=== PATIENT | female | born 1985 | race Caucasian/White ===

== ENCOUNTER 2017-03-19 16:08 | Observation (INO) ==
[2017-03-19] MEDS ORDERED: ZOFRAN IV ONE (16:36)
[2017-03-19] MEDS ORDERED: MORPHINE IV ONE ×2 (16:36→18:25)
[2017-03-19] MEDS ORDERED: NS 1,000 ML IV ONE (16:36)
[2017-03-19 16:46] LABS: BILIRUBIN URINE NEGATIVE (NEGATIVE); BLOOD URINE NEGATIVE (NEGATIVE); CLARITY CLEAR (CLEAR); COLOR YELLOW; GLUCOSE URINE NEGATIVE (NEGATIVE); LEUKOCYTES URINE TRACE (NEGATIVE); NITRITE URINE NEGATIVE (NEGATIVE); PROTEIN URINE NEGATIVE (NEGATIVE); SP GRAVITY URINE 1.015; UROBILINOGEN URINE NORMAL
[2017-03-19 16:49] LABS: URINE EPITHELIAL CELLS >10 /HPF (<10)
[2017-03-19 16:50] LABS: URINE CAST NONE SEEN /LPF; URINE CRYSTAL NONE SEEN /HPF; URINE CULTURE PL NEEDED? YES; URINE SOURCE CLEAN CATCH
[2017-03-19 17:18] LABS: MANUAL DIFF NEEDED? NO
[2017-03-19 17:20] LABS: BASO% 0.5 % (0.0-0.8); EOS# 0.16 X1000 (0.0-0.7); EOS% 2.8 % (0.0-10.0); HEMOGLOBIN 9.3 g/dL (12.0-16.0); IMM GRAN# 0.02 X1000 (0.0-0.04); IMM GRAN% 0.3 % (0.0-0.5); LYMPH# 2.19 X1000 (1.2-3.4); LYMPH% 38.2 % (20.5-51.1); MCH 29.7 PG (27-31); MCHC 32.1 g/dL (33-37); MCV 92.7 FL (81-99); MONO# 0.47 X1000 (0.11-0.59); MONO% 8.2 % (1.7-9.3); MPV 9.9 FL (7.4-10.4); PLT 204 X1000 (130-400); RBC 3.13 XMIL (4.2-5.4)
--- NOTE | 2017-03-19 17:41 | Diag Imaging Result Doc PS360 ---
RENAL STONE SEARCH - 03/19/2017 INDICATION: flank pain TECHNIQUE: A CT dose reduction protocol was used. COMPARISON: 12/11/2013 FINDINGS: No radiodense renal stones. No hydronephrosis or hydroureter. There is a new relatively large ventral hernia at the right lower quadrant and right side of the pelvis containing quite a bit of the small bowel and some a sending colon. No bowel obstruction or inflammation. Uterus is absent. Urinary bladder and rectum are normal. There are moderate degenerative changes of the spine. No acute or suspicious bony lesion. IMPRESSION: New ventral hernia containing nonobstructed small bowel and colon. Electronically signed by Umer Grimaldo 03/19/2017 5:39 PM
[2017-03-19 17:57] LABS: AGAP 7; ALBUMIN 2.2 g/dL (3.5-5.0); ALKALINE PHOSPHATASE 38 U/L (32-104); BUN 8 mg/dL (8-22); CHLORIDE 116 mmol/L (98-107); COSMO 276; GOT 9 U/L (10-30); GPT 9 U/L (10-36); LIPASE 14 U/L (13-60); SODIUM 140 mmol/L (136-145); TCO2 18 mmol/L (25-35); TOTAL BILIRUBIN < 0.15 mg/dL (0.20-1.00); TOTAL PROTEIN 4.4 g/dL (6.3-8.3)
[2017-03-19 17:59] LABS: CALCIUM 5.4 mg/dL (8.8-10.2)
[2017-03-19] MEDS ORDERED: KLOR-CON PO ONE (18:24)
[2017-03-19] MEDS ORDERED: POTASSIUM CHLORIDE 40 MEQ/SWI 40 MEQ/100 ML IVPB IV ONE (18:24)
[2017-03-19] MEDS ORDERED: MAGNESIUM SULFATE 1 GM/D5W 1 GM/100 ML IVPB IV ONE (18:24)
[2017-03-19] MEDS ORDERED: MACROBID PO ONE (18:38)
[2017-03-19] MEDS ORDERED: TYLENOL PO PRN (18:40)
[2017-03-19] MEDS ORDERED: ZOFRAN IV PRN (18:40)
[2017-03-19] MEDS ORDERED: MORPHINE IV PRN (18:40)
--- NOTE | 2017-03-19 19:10 | EKG Report ---
Test Performed on : 03/19/2017 6:59:47 PM Test Reason : CP Blood Pressure : / mmHG Vent. Rate : 091 BPM Atrial Rate : 091 BPM P-R Int : 166 ms QRS Dur : 076 ms QT Int : 368 ms P-R-T Axes : 053 039 033 degrees QTc Int : 452 ms Normal sinus rhythm. Low voltage QRS Nonspecific ST and T wave abnormality Abnormal ECG When compared with ECG of 06-MAY-2007 11:52, No significant change was found Unconfirmed Result
--- NOTE | 2017-03-19 21:15 | PROVIDER DOCUMENTATION ---
This chart was entered by Haritha Riddle Scribe, acting as scribe for Sung Altman PA. HPI-Female /OB/Breast - General Chief Complaint: Flank Pain Stated Complaint: FLANK PAIN Time Seen by Provider: 03/19/17 16:33 Source: reports: patient Allergies/Adverse Reactions: Patient Allergies Allergy/AdvReac Type Severity Reaction Status Date / Time toradol or tramadol not sure Allergy SHORTNESS Uncoded 06/10/15 19:33 OF BREATH Home Medications: Home Medication List Medication Instructions Recorded Confirmed Last Taken Type Citalopram Hydrobromide [Celexa] 20 mg pe PO DAILY 07/16/16 03/19/17 03/18/17 21 :00 History Acetaminophen [Tylenol] 650 mg PO Q4H PRN PRN 03/19/17 03/19/17 03/18/17 21:00 History Pantoprazole [Protonix] 40 mg PO DAILY@0700 03/19/17 03/19/17 03/18/17 21:00 History - History of Present Illness-Female /OB Nature of Presenting Problem: 31 yo F presents to the ER with complaint of R flank pain that radiates to her R groin. Has nausea associated. Denies hx of kidney stones and denies hematuria. Location of complaint: reports: right flank Radiation: reports: groin Quality of Pain: reports: sharp Severity in ED: reports: moderate Onset/Duration: reports: 2 days ago Urinary Symptoms: denies: hematuria Associated Symptoms: reports: nausea Review of Systems - Adult - REVIEW OF SYSTEMS - ADULT Constitutional: denies: chills, fever Eyes: reports: no symptoms reported Ears, Nose, Mouth & Throat: reports: no symptoms reported Cardiovascular: denies: chest pain, palpitations Respiratory: denies: cough, shortness of breath Gastrointestinal: reports: nausea. denies: vomiting Genitourinary: reports: flank pain. denies: dysuria Musculoskeletal: reports: no symptoms reported Integumentary: reports: no symptoms reported Neurological: reports: no symptoms reported Psychiatric: reports: no symptoms reported Endocrine: reports: no symptoms reported Hematologic/Lymphatic: reports: no symptoms reported Allergic/Immunologic: reports: no symptoms reported All Other Systems: Reviewed and Negative Past History - Adult - PAST MEDICAL HISTORY-ADULT Review of Records: reports: Nursing Assessment Review, Medications Reviewed Major Childhood Illnesses: reports: denies history Cardiovascular: reports: cardiac disease Gastrointestinal: reports: GERD, other (benign abdominal tumor) Psychiatric: reports: anxiety - PRIOR SURGERIES/PROCEDURES Surgical/Procedure History: reports: hysterectomy, BTL, other (abdominal tumor removal) - PRIOR HOSPITALIZATIONS Prior Hospitalizations: reports: for other non-related - IMMUNIZATION STATUS Childhood Immunizations: See Nurse Assessment Flu Vaccine: See Nurse Assessment - FAMILY HISTORY Family History: other (not contributory) Physical Exam-General - PHYSICAL EXAM-ADULT Initial Vital Signs Reviewed: Yes - CONSTITUTIONAL General Appearance: alert, no apparent distress, obese - EYES Eyes: PERRL/EOMI, pink conjunctivae - HEAD, EARS, NOSE, MOUTH & THROAT HENMT: normocephalic/atraumatic, normal ENT inspection - NECK Neck: supple, normal inspection - RESPIRATORY Respiratory: no respiratory distress, no accessory muscle use - CARDIOVASCULAR Cardiovascular: normal peripheral pulses, regular rate, rhythm - GASTROINTESTINAL (ABDOMEN) Abdominal Exam: normal bowel sounds, non tender, soft - MUSCULOSKELETAL Back Exam: no CVA tenderness, no vertebral tenderness Extremity: normal range of motion, non-tender, normal gait, normal inspection - SKIN Integumentary: normal color, warm/dry - NEUROLOGIC Neurologic: grossly normal, no motor/sensory deficits - PSYCHIATRIC Psych/Mental Status: normal mood/affect, normal thought content, normal thought process, oriented x 3, tearful Progress - PLAN OF CARE/RESULTS Progress/Plan/Lab Results: Vital Signs - 8 hr 03/19/17 16:16 Temperature 99.5 F Pulse Rate 116 H Respiratory Rate 30 H Blood Pressure 154/103 O2 Sat by Pulse Oximetry 98 Laboratory Results - last 24 hr 03/19/17 03/19/17 03/19/17 16:34 17:13 17:13 WBC 5.74 RBC 3.13 L Hgb 9.3 L Hct 29.0 L MCV 92.7 MCH 29.7 MCHC 32.1 L RDW Std Deviation 13.0 Plt Count 204 MPV 9.9 Immature Gran % (Auto) 0.3 Neut % (Auto) 50.0 Lymph % (Auto) 38.2 [place] % (Auto) 8.2 Eos % (Auto) 2.8 Baso % (Auto) 0.5 Immature Gran # (Auto) 0.02 Neut # (Auto) 2.87 Lymph # (Auto) 2.19 [place] # (Auto) 0.47 Eos # (Auto) 0.16 Baso # (Auto) 0.03 Sodium 140 Potassium 2.0 L* Chloride 116 H Carbon Dioxide 18 L Anion Gap 7 BUN 8 Creatinine 0.3 L Estimated GFR/1.73 m2 > 60 BUN/Creatinine Ratio 27 Glucose 64 L Calculated Osmolality 276 Calcium 5.4 L* Magnesium Total Bilirubin < 0.15 L AST 9 L ALT 9 L Alkaline Phosphatase 38 Total Protein 4.4 L Albumin 2.2 L Globulin 2.0 Albumin/Globulin Ratio 1.0 Lipase 14 Urine Source CLEAN CATCH Urine Color YELLOW Urine Clarity CLEAR Urine pH 6.0 Ur Specific [place] 1.015 Urine Protein NEGATIVE Urine Ketones NEGATIVE Urine Blood NEGATIVE Urine Nitrite NEGATIVE Urine Bilirubin NEGATIVE Urine Urobilinogen NORMAL Urine Microscopic RBC Not Reportable Urine WBC TRACE A Urine Microscopic WBC 10-20 A Ur Epithelial Cells >10 A Urine Crystals NONE SEEN Urine Bacteria 1+ Urine Casts NONE SEEN Urine Yeast NONE SEEN Urine Glucose NEGATIVE 03/19/17 17:13 WBC RBC Hgb Hct MCV MCH MCHC RDW Std Deviation Plt Count MPV Immature Gran % (Auto) Neut % (Auto) Lymph % (Auto) [place] % (Auto) Eos % (Auto) Baso % (Auto) Immature Gran # (Auto) Neut # (Auto) Lymph # (Auto) [place] # (Auto) Eos # (Auto) Baso # (Auto) Sodium Potassium Chloride Carbon Dioxide Anion Gap BUN Creatinine Estimated GFR/1.73 m2 BUN/Creatinine Ratio Glucose Calculated Osmolality Calcium Magnesium 1.1 L Total Bilirubin AST ALT Alkaline Phosphatase Total Protein Albumin Globulin Albumin/Globulin Ratio Lipase Urine Source Urine Color Urine Clarity Urine pH Ur Specific [place] Urine Protein Urine Ketones Urine Blood Urine Nitrite Urine Bilirubin Urine Urobilinogen Urine Microscopic RBC Urine WBC Urine Microscopic WBC Ur Epithelial Cells Urine Crystals Urine Bacteria Urine Casts Urine Yeast Urine Glucose Orders Category Date Time Status Admit - [facility] Routine AdmDCTranf 03/19/17 18:40 Ordered Activity - Up Ad Deidre ORDERED Care 03/19/17 18:40 Active Call Admitting on Arrival AT ADMISSION Care 03/19/17 18:41 Active Resuscitation Status Routine Care 03/19/17 18:40 Ordered Saline Loc DIRECTED Care 03/19/17 16:39 Active Saline Loc DIRECTED Care 03/19/17 18:40 Active Vital Signs Order ROUTINE Care 03/19/17 18:40 Active Z-Document. for Tele Applied ORDERED Care 03/19/17 18:45 Active NPO Diet 03/19/17 16:39 Completed Regular Diet Diet 03/19/17 18:42 Active RENAL STONE SEARCH [CT] Stat Exams 03/19/17 16:36 Completed CBC WITH DIFF [HEME] DAILY Lab 03/20/17 06:00 Ordered CBC WITH ELECTRONIC DIFF [HEME] Stat Lab 03/19/17 17:13 Completed COMPREHENSIVE METABOLIC PANEL [CHEM] DAILY Lab 03/20/17 06:00 Ordered COMPREHENSIVE METABOLIC PANEL [CHEM] Stat Lab 03/19/17 17:13 Completed LIPASE [CHEM] Stat Lab 03/19/17 17:13 Completed MAGNESIUM [CHEM] DAILY Lab 03/20/17 06:00 Ordered MAGNESIUM [CHEM] Stat Lab 03/19/17 17:[address] W/POSS RFLX CULT [URINALYSIS] Stat Lab 03/19/17 16:34 Completed 0.9% Sodium Chloride Inj [Ns] 1,000 ml Med 03/19/17 16:36 Discontinued IV 999 mls/hr Acetaminophen [Tylenol] Med 03/19/17 18:40 Active 650 mg PO Q6H PRN PRN Magnesium Sulfate 1 gm/D5w Med 03/19/17 18:24 Discontinued 1 gm in 100 ml IV NOW Morphine Med 03/19/17 18:40 Active 2 mg IV Q2H PRN PRN Morphine Med 03/19/17 16:36 Discontinued 4 mg IV NOW ONE Morphine Med 03/19/17 18:25 Discontinued 4 mg IV NOW ONE Nitrofurantoin [place]/Macrocryst [Macrobid] Med 03/19/17 18:38 Discontinued 100 mg PO NOW ONE Ondansetron [Zofran] Med 03/19/17 16:36 Discontinued 4 mg IV NOW ONE Ondansetron [Zofran] Med 03/19/17 18:40 Active 4 mg IV Q4H PRN PRN Potassium Chloride 40 Meq/Swi Med 03/19/17 18:24 Active 40 meq in 100 ml IV ONCE Potassium Chloride E.r. [Klor-Con] Med 03/19/17 18:24 Discontinued 40 meq PO NOW ONE Oxygen Device Routine Oth 03/19/17 18:41 Active Telemetry [OM.EQ] Routine Oth 03/19/17 18:40 Active EKG [EKG] Stat Ther 03/19/17 18:10 Draft Transfer/Admit Order [TRANSFER] Routine Transfer 03/19/17 18:47 Completed Result Diagrams: 03/19/17 17:13 03/19/17 17:13 - CT/MRI 1 CT Study: Abdomen, Pelvis CT Results: vental hernia without signs of obstruction. - CONSULTS/PCP/HOSPITALIST Notification #1 *Consult/PCP/Hospitalist*: Dr. Beard Time Discussed: 18:15 Reason/Comments: given po and IV K Consult Disposition: Admit Departure - Departure Date of Disposition Decision: 03/19/17 Time of Disposition Decision: 18:29 DIAGNOSIS: Hypokalemia, Hypomagnesemia, Flank pain Disposition: ADMITTED INPATIENT 09 Certified Medical Emergency: Emergent Condition: Stable - Critical Care Note This patient required my direct & personal management of CC.: No Attestation - Physician/ MATEUSZ Attestation Patient care was provided by Advanced Practice Provider:: Yes Advanced Practice Provider:: Sung Altman Advanced Practice Provider documentation review:: The Mid-level provider documentation, treatment plan and medical decision making was reviewed by the physician who agrees with all treatment and medical decision making by the MLP. This chart was documented by the indicated scribe, (Haritha Riddle Scribe) and accurately reflects the services I performed and decisions made by me, Sung Altman, PA, as attested by the provider's signature.
[2017-03-19] MEDS: NORCO-5 PO PRN (22:44)
[2017-03-20] MEDS: NORCO-5 PO PRN ×3 (02:15→11:55)
[2017-03-20 06:33] LABS: MANUAL DIFF NEEDED? NO
[2017-03-20 06:48] LABS: BASO% 1.1 % (0.0-0.8); EOS# 0.21 X1000 (0.0-0.7); EOS% 3.3 % (0.0-10.0); HEMATOCRIT 37.3 % (37.0-47.0); HEMOGLOBIN 11.8 g/dL (12.0-16.0); IMM GRAN# 0.01 X1000 (0.0-0.04); IMM GRAN% 0.2 % (0.0-0.5); LYMPH# 2.53 X1000 (1.2-3.4); LYMPH% 39.5 % (20.5-51.1); MCH 29.4 PG (27-31); MCHC 31.6 g/dL (33-37); MONO# 0.52 X1000 (0.11-0.59); MONO% 8.1 % (1.7-9.3); NEUT% 47.8 % (42.2-75.2); PLT 231 X1000 (130-400); RBC 4.01 XMIL (4.2-5.4)
[2017-03-20 06:53] LABS: AGAP 6; ALBUMIN 3.5 g/dL (3.5-5.0); ALKALINE PHOSPHATASE 55 U/L (32-104); BUN 10 mg/dL (8-22); CALCIUM 8.7 mg/dL (8.8-10.2); CHLORIDE 105 mmol/L (98-107); COSMO 271; GOT 18 U/L (10-30); GPT 15 U/L (10-36); MAGNESIUM 2.2 mg/dL (1.5-2.7); POTASSIUM 4.3 mmol/L (3.5-5.1); SODIUM 136 mmol/L (136-145); TCO2 25 mmol/L (25-35); TOTAL PROTEIN 6.9 g/dL (6.3-8.3)
--- NOTE | 2017-03-20 12:53 | Diag Imaging Result Doc PS360 ---
EXAM: LUMBAR SPINE HISTORY: back pain TECHNIQUE: Lumbosacral spine series with obliques six views . COMMENT: There is no evidence of fracture or subluxation. The pedicles are intact. The disc spaces are well-maintained. There are no previous studies available for comparison. IMPRESSION: No acute disease. Electronically signed by Eugene Aguilar 03/20/2017 12:50 PM
[2017-03-20 14:07] VITALS: BP 128/77
--- NOTE | 2017-03-20 16:38 | HISTORY AND PHYSICAL ---
PRIMARY CARE PHYSICIAN: Dr. Kiko Jolly. CHIEF COMPLAINT: Right-sided flank pain. HISTORY OF PRESENT ILLNESS: This is a 31-year-old obese female with a history of gastroesophageal reflux disease who presented to the emergency room complaining of right flank pain. She stated this has been present for 1-2 weeks, although she has had an exacerbation the last 2 days. She does have nausea when the pain is at its worst. She does note that sitting, bending and lying do exacerbate her pain. When asked to show the area of pain, she does point to her lower back in her lower lumbar region. This cannot be reproduced with palpation. She denies any injuries. A renal CT was performed, which revealed no radiodense renal stones, no hydronephrosis or hydroureter. A new relatively large ventral hernia at the right lower quadrant and right side of the pelvis containing quite a bit of small bowel and some ascending colon with no bowel obstruction or inflammation. Urinary bladder and rectum are normal. She does have moderate degenerative changes of the spine. She was given IV hydration with magnesium and potassium repleted and admitted for further evaluation and treatment. PAST MEDICAL HISTORY: Gastroesophageal reflux disease. Obesity. PAST SURGICAL HISTORY: Hysterectomy. Bilateral tubal ligation. SOCIAL HISTORY: She denies alcohol, tobacco, or illicit drug use. ALLERGIES: Tramadol or Toradol, she is not sure which. HOME MEDICATIONS: Protonix, Celexa and Tylenol. REVIEW OF SYSTEMS: A 14 point review of systems is discussed with patient with pertinent positives being stated in the HPI. She denied chest pain, syncope, palpitations, shortness of breath, PND, orthopnea, vomiting, constipation, hematuria, dysuria, frequency, urgency, cough, shortness of breath, PND, orthopnea. PHYSICAL EXAMINATION: GENERAL: This is a 31-year-old obese female, who is lying in the bed, in no distress. VITAL SIGNS: Blood pressure is 107/57 with a heart rate of 77, respirations are 18, temperature is 97.7% with room air saturations of 99-100%. HEENT: Head is normocephalic, atraumatic. Pupils equal, round, react to light. EOMs are intact. Sclerae anicteric. Mucous membranes are moist. NECK: Supple with trachea midline. CARDIOVASCULAR: Regular rate and rhythm. No rubs, murmurs, or gallops. S1 and S2 appreciated. PULMONARY: Breath sounds are clear with no increased work of breathing noted. She does have equal chest expansion. GASTROINTESTINAL: Abdomen is soft, nontender, nondistended with bowel sounds in all 4 quadrants. BACK: No CVAT. No spine tenderness. She does have pain to her right hip and lumbar area. EXTREMITIES: No clubbing, cyanosis, or edema. Calves are nontender. Pulses are palpable x4. SKIN: Warm and dry with no rashes or lesions noted. NEUROLOGIC: She is alert and oriented x3. Cranial nerves 2-12 grossly intact. DIAGNOSTICS/IMAGING: WBC is 5.7 with hemoglobin 9.3, hematocrit 29 and platelets of 204,000. Sodium is 140, potassium 2, with BUN of 8, creatinine 0.3 and glucose is 64. Urinalysis is essentially negative. She does have greater than 10 epithelial cells. Lumbar spine x-ray revealed no evidence of fracture or subluxation. Pedicles are intact. Disk spaces are well maintained and renal CT revealed a new ventral hernia containing nonobstructed small bowel and colon. ASSESSMENT: This is a 31-year-old obese female, who is lying in the bed, in no distress. 1. Low back pain. 2. Hypokalemia. 3. Hypomagnesemia. 4. Ventral hernia with no obstruction. PLAN: She will be admitted to the hospital. We will continue with IV hydration as well as pain and nausea control. We will repeat labs and follow. Dictated by ANGELA Ordonez for Rikki Beard MD cc: ANGELA Ordonez MD
--- NOTE | 2017-03-21 14:34 | DISCHARGE SUMMARY ---
ADMISSION DATE: 03/19/2017 DISCHARGE DATE: 03/20/2017 DIAGNOSES: 1. Right low back/hip pain. 2. Hypokalemia. Resolved. 3. Hypomagnesemia. Resolved. 4. Ventral hernia. 5. History of diarrhea after p.o. intake. DIAGNOSTICS: Renal CT revealed a large ventral hernia containing small bowel and colon with no obstruction. Lumbar spine revealed no acute disease. HOSPITAL COURSE: Ms. Dillard presented to the emergency room complaining of right lower back pain that radiates around to her right groin. She stated it is exacerbated by bending and sitting and lying. Standing does help somewhat. She denied any recent injury. CT scan revealed a large ventral hernia, the lumbar spine series revealed no acute processes. She did have a low potassium and low magnesium which were repleted and laboratory was repeated which did normalize. She did state that for quite some time she has had diarrhea after any p.o. intake. We did discuss the possibility of irritable bowel syndrome and the need to follow up with Gastroenterology. We also discussed the followup with General Surgery regarding her ventral hernia as it does contain a large amount of small and large intestine. Right now it is not obstructed, but it could happen at any time. As her back pain is lower back that radiates around to her groin and it is exacerbated by sitting and bending, we did discuss the possibility of this being an orthopedic problem, and that she would need to follow up with an orthopedic physician. She had no diarrhea or vomiting while in the hospital and she did tolerate a regular diet for breakfast and lunch, which she ate 100%. DISCHARGE PHYSICAL EXAMINATION: Cardiovascular: Regular rate and rhythm S1, S2 appreciated. Pulmonary: Breath sounds are clear. No increased work of breathing noted. Gastrointestinal: Abdomen is soft, nontender, nondistended. Bowel sounds in all 4 quadrants. Back: No CVAT. No spine tenderness. Musculoskeletal: Good range of motion of joints. Neurologic: She is alert and oriented x3, cranial nerves 2-12 grossly intact. Vital Signs: Blood pressure is 128/77 with a heart rate of 90, respirations are 20, temperature 98.3 degrees oral with room air saturations 99-100%. DISCHARGE ACTIVITY: As tolerated. DISCHARGE DIET: Regular. FOLLOWUP: 1. She has an appointment scheduled with Dr. Silva for April 05 at 9:[address] Ketan Ramos March 22 at 1:[address] 3[address]. Kiko Jolly she is to follow up in the next 1-2 weeks. She is being discharged home in stable condition with family members. TIME SPENT: This is a greater than 30 minute discharge. Dictated by ANGELA Ordonez for Rikki Beard MD cc: ANGELA Ordonez MD Kirk L. Jackson, MD
== END 2017-03-20 15:30 | disposition home or self-care (01) ==
LOC: P.MEDSURG 16:08 → P.ED 16:08
PROVIDERS: ATTEND Family Medicine

== ENCOUNTER 2019-11-04 17:25 | Inpatient (IN) ==
--- NOTE | 2019-11-04 18:12 | PROVIDER DOCUMENTATION ---
HPI-Abdominal Pain/GI Problem - General Chief Complaint: Rectal Bleeding Stated Complaint: ABD PAIN, WEAKNESS Time Seen by Provider: 11/04/19 17:26 Source: patient Allergies/Adverse Reactions: Patient Allergies Allergy/AdvReac Type Severity Reaction Status Date / Time topiramate [From Topamax] Allergy Intermediate Unknown Verified 08/10/18 10:24 tramadol AdvReac Severe SHORTNESS Verified 08/10/18 10:24 OF BREATH Home Medications: Home Medication List Medication Instructions Recorded Confirmed Last Taken Type Alprazolam [Xanax] 1 mg PO BID PRN 04/24/17 03/25/18 03/22/18 21:30 History 1 Bupropion [Wellbutrin] 150 mg PO QAM 02/06/18 03/25/18 03/22/18 08:30 History 150 Propranolol [Inderal] 10 mg PO DAILY 02/06/18 03/25/18 03/23/18 06:00 History 10 Promethazine [Phenergan] 25 mg PO Q6H PRN PRN #20 tab 03/25/18 Unknown Rx Omeprazole 08/10/18 08/10/18 Unknown History Nitrofurantoin Rincon/Macrocryst 100 mg PO BID #10 cap 09/01/18 Unknown Rx [Macrobid] Ondansetron HCl [Zofran] 4 mg PO Q6H PRN PRN #20 tab 09/01/18 Unknown Rx CefDINIR [Omnicef] 300 mg PO DAILY #10 cap 03/13/19 Unknown Rx - History of Present Illness-ABD Nature of Presenting Problems: 34 YOF with PMH of gastric bypass presents with c/o upper abdominal pain, reports hx of constipation with blood in stool, reports it was worse over the weekend and she "filled the toilet up" and had a "blood clot in the toilet" , she also reports she has had multiple episodes of feeling as if she would pass out. She c/o Nausea. Denies vomiting, diarrhea, fever chills. Abdominal Pain Onset Location: reports: RUQ, LUQ Pain Radiation: reports: no radiation Quality of Pain: reports: aching, cramping Severity in ED: reports: moderate Onset/Duration: reports: 1 week ago Timing: reports: still present Activities at Onset: reports: none Exposure to sick contacts?: No Modifying Factors: improves with: nothing Associated Symptoms: reports: constipation, nausea Last BM: 24 hours ago Dark Stools Present?: reports: black, bright red blood Rectal Bleeding: reports: none # of Diarrhea Episodes: 0 Rectal Pain: reports: none # of Vomiting Episodes: 0 Emesis Description: reports: none Bruising or Bleeding Gums?: No Similar Symptoms Previously?: Yes Recently seen or treated by another doctor?: No Review of Systems - Adult - REVIEW OF SYSTEMS - ADULT Constitutional: reports: no symptoms reported. denies: see HPI, chills, fever, fatique, night sweats, weight gain, weight loss, other Eyes: reports: no symptoms reported. denies: see HPI, discharge, dry eyes, decreased vision, blurred vision, double vision, eye pain, redness, other Ears, Nose, Mouth & Throat: reports: no symptoms reported. denies: see HPI, ear discharge, ear pain, hearing loss, tinnitus, epistaxis, sinus problem, nose pain, loose teeth, mouth/dental pain, mouth swelling, hoarseness, throat pain, throat swelling, other Cardiovascular: reports: no symptoms reported. denies: see HPI, chest pain, edema, heart murmur, irregular heart rate, orthopnea, palpitations, poor circulation, PND, syncope, other Respiratory: reports: no symptoms reported. denies: see HPI, chronic cough, cough, dyspnea on exertion, excessive sputum production, hemoptysis, pleurisy, shortness of breath, wheezing, other Gastrointestinal: reports: abdominal pain, constipation, nausea, rectal bleeding . denies: no symptoms reported, see HPI, hematemesis, diarrhea, difficulty swallowing, frequent heartburn, poor appetite, vomiting, other Genitourinary: reports: no symptoms reported. denies: see HPI, dysuria, discharge, frequency, flank pain, frequent UTI's, hematuria, hesitency, incontin ence, urinary retention, urgency, other Musculoskeletal: reports: no symptoms reported. denies: see HPI, bone pain, back pain, frequent leg cramps, joint pain, joint swelling, muscle aches, muscle weakness, neck pain, other Integumentary: reports: no symptoms reported. denies: see HPI, hives, hair loss, itching, mole changes, nail changes, rash, skin sores/ulcer, skin thickening, other Neurological: reports: no symptoms reported. denies: see HPI, ataxia, dizziness/vertigo, headache/migraines, loss of balance, numbness, paresthesia, seizure, slurred speech, syncope, tremors, other Psychiatric: reports: no symptoms reported. denies: see HPI, anxiety, anti- depressant use, alcohol/drug dependence, depression, emotional problems, insomnia, panic attacks, suicidal thoughts, other Endocrine: reports: no symptoms reported. denies: see HPI, change in skin pigment, excessive sweating, goiter, cold intolerance, heat intolerance, increased hunger, increased thirst, polyuria, other Hematologic/Lymphatic: reports: no symptoms reported. denies: see HPI, blood clots, easy bruising, low blood count, lymphedema, prolonged bleeding, swollen lymph nodes, transfusions, other Allergic/Immunologic: reports: no symptoms reported. denies: see HPI, allergic reactions, allergic rhinitis, asthma, eczema, food allergy, frequent infections, hay fever, hives, positive PPD, urticaria, other Past History - Adult - PAST MEDICAL HISTORY-ADULT Review of Records: reports: Nursing Assessment Review, Social history reviewed & non-contributory. Major Childhood Illnesses: reports: denies history Cardiovascular: reports: arrhythmia (tachycardia) Respiratory: reports: denies history Gastrointestinal: reports: diverticulosis, GERD, ulcer, other (benign abdominal tumor, gastroparesis, gastritis) Obstetrical/Gynecological: reports: denies history Genitourinary: reports: denies history Musculoskeletal: reports: denies history Neurological: reports: denies history Psychiatric: reports: anxiety, depression Endocrine/Immune: reports: denies history Other Conditions: reports: denies history - PRIOR SURGERIES/PROCEDURES Surgical/Procedure History: reports: EGD, colonoscopy, hysterectomy, BTL, bowel surgery (tumor removal; infection removal), gastric bypass, other (abdominal tumor removal) - PRIOR HOSPITALIZATIONS Prior Hospitalizations: reports: for other non-related - IMMUNIZATION STATUS Childhood Immunizations: See Nurse Assessment Flu Vaccine: See Nurse Assessment - FAMILY HISTORY Family History: reviewed, not pertinent, other (not contributory) Physical Exam-General - PHYSICAL EXAM-ADULT Initial Vital Signs Reviewed: Yes - CONSTITUTIONAL General Appearance: alert, no apparent distress - EYES Eyes: PERRL/EOMI, pink conjunctivae - HEAD, EARS, NOSE, MOUTH & THROAT HENMT: normocephalic/atraumatic, moist mucous membranes, normal ENT inspection - NECK Neck: non-tender, full range of motion, supple - RESPIRATORY Respiratory: chest non-tender, lungs clear, no respiratory distress, no accessory muscle use - CARDIOVASCULAR Cardiovascular: normal peripheral pulses, regular rate, rhythm, no edema, no gallop, no JVD, no murmur - GASTROINTESTINAL (ABDOMEN) Abdominal Exam: normal bowel sounds, soft, tenderness - LYMPHATIC Lymphatic: no adenopathy - MUSCULOSKELETAL Back Exam: normal inspection, no CVA tenderness, no vertebral tenderness Extremity: normal range of motion, non-tender, normal gait, normal inspection, no pedal edema, no calf tenderness Peripheral Pulses: radial (R): 2+, radial (L): 2+ - SKIN Integumentary: normal color, normal turgor, warm/dry, other (multiple healing wounds to buttocks, no abscess) - NEUROLOGIC Neurologic: grossly normal - PSYCHIATRIC Psych/Mental Status: normal mood/affect, oriented x 3 Progress - PLAN OF CARE/RESULTS Progress/Plan/Lab Results: Vital Signs - 8 hr 11/04/19 17:47 Temperature 98 F Pulse Rate 94 H Respiratory Rate 18 O2 Sat by Pulse Oximetry 100 Orders Category Date Time Status May use PICC Line/Port a Cath ORDERED Care 11/04/19 18:06 Ordered NEWS Score 2-4:Order NEWS Lactate Series NOW Care 11/04/19 17:[address] ABD/PELVIS W/IV CONT ONLY [CT] Stat Exams 11/04/19 18:06 Ordered CBC WITH ELECTRONIC DIFF [HEME] Stat Lab 11/04/19 17:55 Uncollected COMPREHENSIVE METABOLIC PANEL [CHEM] Stat Lab 11/04/19 17:55 Uncollected LIPASE [CHEM] Stat Lab 11/04/19 17:55 Uncollected OCCULT BLOOD SCREENING [STOOL] Stat Lab 11/04/19 17:55 Uncollected TYPE & SCREEN [BBK] Stat Lab 11/04/19 17:55 Uncollected UA NIMS W/REFLEX CULT [URINALYSIS] Stat Lab 11/04/19 17:55 Uncollected Pt reports she has taken morphine without issue, she c/o headache, + gi stool will not give NSAIDS Result Diagrams: 11/04/19 18:30 11/04/19 18:30 - REASSESSMENT Reassessment #1 Time Reassessed: 20:25 Status: unchanged ([facility] IMPROVED WITH MEDICATIONS) - CT/MRI 1 CT Study: Abdomen, Pelvis Impression: See EMR Report (CT ABD/PELVIS W/IV CONT ONLY - 11/04/2019 INDICATION: abd pain COMPARISON: 03/25/2018 FINDINGS: There are gastric bypass changes. There is a stable ventral hernia at the right anterior pelvic body wall. No bowel obstruction or inflammation. There is splenomegaly. The spleen measures 14.6 x 4.8 cm. Other abdominal organs are all normal. No significant constipation. Urinary bladder and rectum are normal. Bones are intact and well mineralized. IMPRESSION: Splenomegaly. Stable ventral hernia without complication. This exam was performed using automated exposure control, adjustment of mA or kV according to patient size, and/or use of iterative reconstruction technique Electronically signed by Umer Grimaldo 11/04/2019 8:39 PM 11/04/192038 Interpreting Physician: Umer Grimaldo MD Dictated Date/Time: 11/04/192034 cc: Maryan Milton; None,PCP) - CONSULTS/PCP/HOSPITALIST Notification #1 *Consult/PCP/Hospitalist*: DR. KIRBY Time Discussed: 21:01 Consult Disposition: Admit (serial H&H, IVF, protonix qtt, carafate, NPO except ice, EGD in AM) #2 Consult: Girish Wilson Time Discussed: 21:05 Consult Disposition: Admit Departure - Departure Date of Disposition Decision: 11/04/19 Time of Disposition Decision: 21:05 DIAGNOSIS: GI bleed, S/P gastric bypass Disposition: ADMITTED INPATIENT 09 Certified Medical Emergency: Emergent Condition: Stable Referrals and Follow-Ups: None,PCP [Primary Care Provider] - - Critical Care Note This patient required my direct & personal management of CC.: No Attestation - Physician/ MATEUSZ Attestation Patient care was provided by Advanced Practice Provider:: Yes Advanced Practice Provider:: Maryan Milton Advanced Practice Provider documentation review:: The Mid-level provider documentation, treatment plan and medical decision making was reviewed by the physician who agrees with all treatment and medical decision making by the MLP. The physician spent face to face time with patient:: No Advanced Practice Provider documentation review:: Supervising physician onsite and consulted in the evaluation and care of this patient. The physician did not have a face to face encounter with the patient.
[2019-11-04] MEDS ORDERED: SODIUM CHLORIDE 0.9% INJ ONE (18:54)
[2019-11-04] MEDS ORDERED: PROTONIX IV ONE (18:54)
[2019-11-04 18:56] LABS: BASO# 0.03 X1000 (0.0-0.2); BASO% 0.4 % (0.0-0.8); EOS# 0.07 X1000 (0.0-0.7); HEMATOCRIT 36.3 % (37.0-47.0); HEMOGLOBIN 11.9 g/dL (12.0-16.0); IMM GRAN# 0.02 X1000 (0.0-0.04); IMM GRAN% 0.3 % (0.0-0.5); LYMPH# 0.86 X1000 (1.2-3.4); LYMPH% 11.8 % (20.5-51.1); MCH 31.2 PG (27-31); MCHC 32.8 g/dL (33-37); MCV 95.3 FL (81-99); MONO# 0.45 X1000 (0.11-0.59); MONO% 6.2 % (1.7-9.3); MPV 9.9 FL (7.4-10.4); NEUT# 5.88 X1000 (1.4-6.5); NEUT% 80.3 % (42.2-75.2); PLT 184 X1000 (130-400); RBC 3.81 XMIL (4.2-5.4); RDW 12.5 % (11.5-14.5); WBC 7.31 X1000 (4.8-10.8)
[2019-11-04 19:07] LABS: OCCULT BLOOD 1 POSITIVE (NEGATIVE)
[2019-11-04 19:29] LABS: AGAP 13; ALBUMIN 3.7 g/dL (3.5-5.0); ALKALINE PHOSPHATASE 67 U/L (32-104); BUN 16 mg/dL (8-22); CALCIUM 8.6 mg/dL (8.8-10.2); CHLORIDE 99 mmol/L (98-107); COSMO 269; CREATININE 0.4 mg/dL (0.5-0.9); ESTIMATED GFR > 60; GLUCOSE 83 mg/dL (70-104); GOT 24 U/L (10-30); GPT 21 U/L (10-36); LIPASE 14 U/L (13-60); POTASSIUM 3.9 mmol/L (3.5-5.1); SODIUM 134 mmol/L (136-145); TCO2 22 mmol/L (25-35); TOTAL PROTEIN 6.9 g/dL (6.3-8.3)
[2019-11-04 19:30] LABS: URINE SOURCE CLEAN CATCH
[2019-11-04 19:33] LABS: BILIRUBIN URINE NEGATIVE (NEGATIVE); BLOOD URINE NEGATIVE (NEGATIVE); COLOR YELLOW; GLUCOSE URINE NEGATIVE (NEGATIVE); KETONE URINE 60 mg/dL (NEGATIVE); LEUKOCYTES URINE NEGATIVE (NEGATIVE); NITRITE URINE NEGATIVE (NEGATIVE); PROTEIN URINE TRACE mg/dL (NEGATIVE); SP GRAVITY URINE 1.034; TURBIDITY URINE CLEAR (CLEAR); UROBILINOGEN URINE 2 mg/dL (NORMAL)
[2019-11-04] MEDS ORDERED: MORPHINE IV ONE (19:34)
[2019-11-04] MEDS ORDERED: ZOFRAN IV ONE (19:34)
[2019-11-04 19:35] LABS: UR EPITHELIAL CELLS <10 /HPF (<10); URINE BACTERIA 1+ /HPF; URINE RBC <10 /HPF (<10); URINE WBC <10 /HPF (<10)
--- NOTE | 2019-11-04 20:42 | Diag Imaging Result Doc PS360 ---
CT ABD/PELVIS W/IV CONT ONLY - 11/04/2019 INDICATION: abd pain COMPARISON: 03/25/2018 FINDINGS: There are gastric bypass changes. There is a stable ventral hernia at the right anterior pelvic body wall. No bowel obstruction or inflammation. There is splenomegaly. The spleen measures 14.6 x 4.8 cm. Other abdominal organs are all normal. No significant constipation. Urinary bladder and rectum are normal. Bones are intact and well mineralized. IMPRESSION: Splenomegaly. Stable ventral hernia without complication. This exam was performed using automated exposure control, adjustment of mA or kV according to patient size, and/or use of iterative reconstruction technique Electronically signed by Umer Grimaldo 11/04/2019 8:39 PM
[2019-11-04] MEDS ORDERED: NS 1,000 ML IV ONE (20:44)
[2019-11-04] MEDS ORDERED: PROTONIX 80 MG in NS 80 ML IV SCH (21:15)
[2019-11-05] MEDS: DILAUDID IV PRN ×5 (00:51→22:12)
--- NOTE | 2019-11-05 05:35 | HISTORY AND PHYSICAL ---
PRIMARY CARE PHYSICIAN: None. CHIEF COMPLAINT: Blood in stools mostly dark color. HISTORY OF PRESENTING ILLNESS: A 34-year-old female with a history of GERD who had apparently had a gastric bypass several years ago, presented to the emergency department with complaint of dark- colored stools. She states initially it was a reddish clot then it became dark. She was initially seen at [facility], and her case was discussed with the parts room associate who recommended the patient be transferred to [facility] for further evaluation and management. At the time of my examination the patient denied any fevers, chills, chest pain or shortness of breath, but complained of epigastric pain and also headache. PAST MEDICAL HISTORY: Includes GERD. PAST SURGICAL HISTORY: Gastric bypass, hysterectomy. ALLERGIES: To Topamax and tramadol. CURRENT MEDICATIONS: Include Xanax 1 mg b.i.d., bupropion 100 mg p.o. daily, Macrobid 100 mg p.o. b.i.d., omeprazole 40 mg p.o. daily, propranolol 20 mg p.o. daily. SOCIAL HISTORY: No history of smoking, alcohol or illicit drug use. FAMILY HISTORY: No history of coronary disease. REVIEW OF SYSTEMS: Fourteen point review of systems listed in the HPI, other systems negative. EXAMINATION: General: A cooperative friendly female. She is resting more comfortably now. Vital Signs: Temperature 98.8 degrees, pulse 105, respiration 18, blood pressure 97/59. HEENT: Atraumatic, normocephalic. Extraocular movements intact. PERRLA. Neck: No masses. Chest: Clear to auscultation. Cardiovascular: Regular rate and rhythm. S1, S2. Abdomen: Soft. Positive bowel sounds. Extremities: No edema. Neurologic: She is awake, alert and oriented x3. : No bladder distention. Skin: Warm. LABORATORIES AND STUDIES: WBC 7.31, hemoglobin 11.9, hematocrit 36.3, platelets 184,000. Sodium 134, potassium 3.9, chloride 99, CO2 22, BUN is 16, creatinine 0.4, glucose is 83. Abdominal and pelvic CT, splenomegaly, stable ventral hernia without complication. ASSESSMENT: A 34-year-old female with a history of GERD, who underwent gastric bypass several years ago, presented to the emergency department initially at [facility] with complaint of dark stools. She was evaluated there and her case was discussed with Gastroenterology who recommended the patient be transferred to [facility] for further evaluation, management and assessment. 1. Suspected upper gastrointestinal bleed. 2. Gastroesophageal reflux disease. PLAN: 1. The patient will be admitted to medical floor. 2. The patient is started on proton PPI. 3. Gastroenterology was consulted. 4. We will keep the patient NPO and give her pain control as needed. 5. Put the patient on DVT prophylaxis with SCDs. 6. We will continue to follow, reassess and make further recommendations based on the patient's clinical course. cc: Abdelrahman Stout MD
[2019-11-05 10:09] LABS: BASO# 0.03 X1000 (0.0-0.2); BASO% 0.9 % (0.0-0.8); EOS# 0.02 X1000 (0.0-0.7); EOS% 0.6 % (0.0-10.0); HEMATOCRIT 36.9 % (37.0-47.0); HEMOGLOBIN 12.3 g/dL (12.0-16.0); LYMPH# 1.03 X1000 (1.2-3.4); LYMPH% 29.3 % (20.5-51.1); MCH 31.3 PG (27-31); MCHC 33.3 g/dL (33-37); MCV 93.9 FL (81-99); MONO# 0.49 X1000 (0.11-0.59); MONO% 13.9 % (1.7-9.3); NEUT# 1.95 X1000 (1.4-6.5); NEUT% 55.3 % (42.2-75.2); PLT 192 X1000 (130-400); RBC 3.93 XMIL (4.2-5.4); RDW 12.5 % (11.5-14.5); WBC 3.52 X1000 (4.8-10.8)
[2019-11-05 10:44] LABS: AGAP 10; BUN 9 mg/dL (8-22); CALCIUM 8.6 mg/dL (8.8-10.2); CHLORIDE 104 mmol/L (98-107); COSMO 274; CREATININE 0.5 mg/dL (0.5-0.9); ESTIMATED GFR > 60; GLUCOSE 88 mg/dL (70-104); POTASSIUM 3.9 mmol/L (3.5-5.1); SODIUM 138 mmol/L (136-145); TCO2 24 mmol/L (25-35)
--- NOTE | 2019-11-05 12:31 | PROGRESS NOTE ---
DATE: 11/05/2019 SUBJECTIVE: Patient reports feeling fine. No more episodes of black tarry stools. OBJECTIVE: Vital signs: Temperature 97.9 degrees, heart rate 97, respiratory rate 18, blood pressure 97/64, O2 saturation 97% on room air. General: This is a 34-year-old female, lying in bed, in no acute distress. Cardiovascular: S1, S2 heard. No murmurs, gallops, or rubs. Regular rate and rhythm. Respiratory: Clear bilaterally to auscultation. No work of breathing or using accessory muscles. Abdomen: Soft. Nontender to palpation. Bowel sounds present. No organomegaly. Extremities: No clubbing, cyanosis, or edema. Peripheral pulses present in both legs. Neurological: The patient alert and oriented x3. Moves 4 extremities. LABORATORY DATA: White cell count is 3.52 with hemoglobin 12.3, hematocrit 36.9 platelets 192,000 with normal BMP. ASSESSMENT: 1. Gastrointestinal bleeding. 2. Gastroesophageal reflux disease. 3. Status post gastric bypass surgery. PLAN: At this point, the patient has been evaluated by Gastroenterology and they are going to perform colonoscopy tomorrow. The patient is on clear liquid diet and will have preparation this afternoon. Hemoglobin is stable so we will see what that procedure shows tomorrow. If she is hemodynamically stable and no drop in hemoglobin and procedure shows no signs of bleeding, we may let this patient go tomorrow. cc: Eliazar Lockhart MD
--- NOTE | 2019-11-05 12:55 | GASTROENTEROLOGY CONSULTATION ---
DATE: 11/05/2019 REASON FOR CONSULT: GI bleed. HISTORY OF PRESENT ILLNESS: Ms. Dillard is a 34-year-old, female, who has a history of history of GERD, atrial fibrillation, uterine tumor status post surgery, and gastric bypass. The patient went to [facility] yesterday with complaints of bright red bleeding with blood clots. She was then sent to [facility]. She mentioned that a couple of weeks back, she had abdominal pain. Last week, she noticed a little bit of bleeding, but it was not anything that she thought was alarming, she always has a little bleeding on and off because of her hemorrhoids. Monday, she noticed that blood was gushing out with blood clots, and she almost passed out, and was feeling very weak. Complained of having chills, nausea, and low- grade fever. The patient did have a gastric bypass in 07/2018. She was 89, and has so far lost 150 pounds. In 2013, the patient had a uterine tumor removed, which was almost 18 pounds in weight. She also had an I & D of her wound abscess done in the abdomen. She mentioned that because of all the surgeries, she has developed abdominal hernia, which she will be having a surgery somewhere in December or January. The patient did take Tylenol 500 mg 4 tablets yesterday because she complained of having headache and abdominal pain. She had several EGD's done since [address] Silva. The latest was done on 03/23/2018. Findings were, erosive gastritis, inflammatory polyps in the gastric antrum, Non-erosive gastritis in the fundus, fundic gland polyp, duodenal ulcers, and duodenitis in the duodenal bulb. Stomach biopsy revealed chronic inactive gastritis, negative H-pylori. No abnormalities in the duodenum biopsy. Stomach fundus biopsy revealed chronic inactive gastritis and negative H-pylori. Had one colonoscopy done on 04/25/2017 and had paiz diverticulosis, grade 2 internal hemorrhoids and medium external hemorrhoids. PAST MEDICAL HISTORY: GERD, atrial fibrillation, uterine tumor status post surgery, gastric bypass. diverticulosis, and hemorrhoids. PAST SURGICAL HISTORY: Hysterectomy, uterine tumor removed, I and D of the wound abscess on the abdomen, port placement and gastric bypass. ALLERGIES: The patient is allergic to morphine, tramadol, and Topamax. SOCIAL HISTORY: The patient is . She has 2 kids. She drinks alcohol on an occasional basis. Denied any smoking or illicit drug use. The patient currently works at [employer]. FAMILY HISTORY: Her dad had non-Hodgkin's lymphoma, and mom had stroke. HOME MEDICATIONS: Xanax 1 mg p.o. as needed, Wellbutrin 150 mg p.o. daily, propranolol 10 mg p.o. daily, Phenergan 25 mg p.o. every 6 hours as needed, omeprazole 40 mg p.o. daily, Macrobid 100 mg p.o. twice a day, Zofran 4 mg p.o. every 6 hours as needed, Omnicef 300 mg p.o. daily. REVIEW OF SYSTEMS: As per HPI. Otherwise, 12-point review of systems is negative. PHYSICAL EXAMINATION: Vital Signs: Temperature 97.9 degrees, pulse 97, respirations 18, blood pressure 97/64, oxygen saturation 97% on room air. The patient's weight is 170 pounds, BMI 30.9 kg/m2. General: She is alert and oriented x3, answering questions appropriately, and in no acute distress. HEENT: Pale conjunctivae. No icterus. PERRL. Neck: Supple. Lungs: Clear to auscultation. Cardiovascular: The patient is tachycardic. Abdomen: Obese and flabby due to gastric bypass. Tender in the upper quadrants. Active bowel sounds heard in all 4 quadrants. Extremities: No clubbing, no cyanosis. Generalized edema in the lower extremities. Pedal pulses 1+ present bilaterally. Neurologic: She is alert and oriented x3. Nonfocal. Cranial nerves II through XII are grossly intact. LABORATORY DATA: WBCs are 3.52, RBC 3.93, hemoglobin 12.3, hematocrit is 36.9, platelet count is 192,000. Sodium 138, potassium 3.9, chloride 104, carbon dioxide 24, anion gap 10, BUN 9, creatinine 0.5, glucose 88, calcium 8.6, plasma lactate is 0.7. Urinalysis yesterday showed trace of protein, ketones of 60. The patient's occult blood was positive. IMAGING: Her abdomen and pelvis CT has shown splenomegaly, stable ventral hernia without complication. IMPRESSION AND PLAN: GI bleed Acute blood loss anemia GERD Hemorrhoids Diverticulosis H/o gastric bypass Nausea and vomiting PLAN: Ms. Dillard is a 34-year-old, female with a history of gastric bypass. GI has been consulted for her GI bleed. We plan to do a colonoscopy on to find out the cause of her bleeding. The patient is currently on IV fluids, lactated Ringer's at 150 mL per hour. She is receiving antiemetic, Zofran, for her nausea and vomiting. The patient's hemoglobin today is 12.3 and 36.9. She is hemodynamically stable, and her hemoglobin and hematocrit have trended upwards. The patient has not noticed any further bleeding. We have discussed the risks, benefits, and alternatives of the procedure to the patient. Further plan of care will be based on the colonoscopy findings. We will continue to monitor her hemoglobin and hematocrit. This plan was discussed with Dr. Medina. Thank you for your consult. Please call us for any further questions or concerns. Dictated by ANGELA Norwood for Kobi Medina MD MTDD
[2019-11-05] MEDS: ZOFRAN IV PRN ×2 (13:48→20:54)
[2019-11-05] MEDS: LR 1,000 ML IV SCH ×2 (13:51→20:54)
[2019-11-05] MEDS ORDERED: PROTONIX IV SCH (21:15)
[2019-11-06] MEDS: DILAUDID IV PRN ×2 (04:19→10:56)
[2019-11-06] MEDS: LR 1,000 ML IV SCH ×4 (04:19→22:48)
[2019-11-06] MEDS: ZOFRAN IV PRN ×2 (06:44→11:04)
[2019-11-06 07:16] LABS: HEMATOCRIT 31.4 % (37.0-47.0); HEMOGLOBIN 10.3 g/dL (12.0-16.0); MCH 30.9 PG (27-31); MCHC 32.8 g/dL (33-37); MCV 94.3 FL (81-99); MPV 10.1 FL (7.4-10.4); RBC 3.33 XMIL (4.2-5.4); RDW 12.5 % (11.5-14.5); WBC 4.14 X1000 (4.8-10.8)
[2019-11-06 07:36] LABS: AGAP 8; BUN 7 mg/dL (8-22); CALCIUM 8.4 mg/dL (8.8-10.2); CHLORIDE 106 mmol/L (98-107); COSMO 280; CREATININE 0.4 mg/dL (0.5-0.9); ESTIMATED GFR > 60; GLUCOSE 81 mg/dL (70-104); POTASSIUM 3.7 mmol/L (3.5-5.1); SODIUM 142 mmol/L (136-145); TCO2 28 mmol/L (25-35)
--- NOTE | 2019-11-06 11:34 | GASTROENTEROLOGY PROGRESS NOTE ---
DATE: 11/06/2019 SUBJECTIVE: Ms. Dillard is a 34-year-old, female. She was sitting in bed. The patient has been complaining of abdominal tenderness in the upper quadrant. She has denied any vomiting but she still feels nauseated. She is on clear liquids. The patient has denied noticing any more further bleeding episodes. OBJECTIVE: Vital Signs: Temperature 97.9 degrees, pulse 69, respirations 16, blood pressure 94/62, oxygen saturation 100% on room air. The patient's weight is 169 pounds. BMI is 30.9 kg/m2. General: She is alert, oriented x3, and in no acute distress. HEENT: Pale conjunctivae. No icterus. PERRL. Neck: Supple. Lungs: Clear to auscultation. Cardiovascular: Regular rate and rhythm. Abdomen: Soft, obese and flabby. Active bowel sounds heard in all 4 quadrants. Extremities: No clubbing, no cyanosis. Generalized edema. Pedal pulses 2+ present bilaterally. Neurologic: She is alert, oriented x3. Labs: WBCs are 4.14, RBCs 3.33, hemoglobin is 10.3, hematocrit is 31.4, platelet count is 169,000. Sodium 142, potassium 3.7, chloride 106, carbon dioxide 20, anion gap 18, BUN 7, creatinine is 0.4, glucose 81, calcium is 8.4. IMPRESSION AND PLAN: - GI bleed - Acute blood loss anemia - History of RYGB - Constipation - Abdominal pain - Diverticulosis - Hemorrhoids - Nausea and vomiting PLAN: Ms. Dillard is a 34-year-old, female with a history of gastric bypass. GI is following her for GI bleed. We will be doing a colonoscopy tomorrow to find out the cause of her bleeding. The patient is currently on clear liquids and will do a GoLYTELY prep this afternoon for her colonoscopy. She is receiving antiemetic, Zofran, for her nausea and vomiting. The patient is currently on lactated Ringer's at 150 mL per hour. We have discussed the risks, benefits, and alternatives of the procedure to the patient. Further plan of care will be based on the colonoscopy findings. This plan was discussed with Dr. Medina. Please call us for any further questions or concerns. Dictated by ANGELA Norwood for Kobi Medina MD Physician Attestation I have seen and examined the patient. I have discussed and reviewed the note by Kaye MILLER and agree with findings and plan as documented. I suspect rectal bleeding is likely hemorrhoidal vs diverticulosis. Colonoscopy planned with Dr. Britton silvina. [place]
--- NOTE | 2019-11-06 12:01 | PROGRESS NOTE ---
DATE: 11/06/2019 SUBJECTIVE: The patient reports feeling fine. No more episodes of black tarry stools. Not feeling any dizziness or lightheadedness. OBJECTIVE: Vital Signs: Temperature 97.7 degrees, heart rate 75, respiratory rate 16, blood pressure 113/76, O2 saturation 100% on room air. General Examination: This is a 34-year-old, female lying in bed, in no acute distress. Cardiovascular Examination: S1 and S2 heard. No murmurs, gallops, or rubs. Regular rate and rhythm. Respiratory Examination: Clear bilaterally to auscultation. No work of breathing or using accessory muscles. Abdomen: Soft, nontender to palpation. Bowel sounds present. No organomegaly. Extremities: No clubbing, cyanosis, or edema. Peripheral pulses present in both legs. Neurological Examination: The patient is alert and oriented x3. Moves 4 extremities. Laboratory Data: Reviewed. ASSESSMENT: 1. Gastrointestinal bleeding. 2. Status post gastric bypass surgery. 3. Gastroesophageal reflux disease. PLAN: At this point, the patient is evaluated by GI. Hemoglobin has dropped a little bit. They are planning to do colonoscopy tomorrow. We will see what it shows. We will continue to monitor CBC daily. We will continue with Protonix. cc: Eliazar Lockhart MD
[2019-11-06] MEDS ORDERED: GOLYTELY PO ONE (14:00)
[2019-11-06] MEDS ORDERED: FLEET ENEMA PR ONE (19:32)
[2019-11-07] MEDS ORDERED: FLEET ENEMA PR ONE (04:00)
[2019-11-07] MEDS: LR 1,000 ML IV SCH ×2 (04:38→15:13)
[2019-11-07] MEDS ORDERED: VERSED ONE (07:01)
[2019-11-07] MEDS ORDERED: DIPRIVAN 1% ONE ×2 (07:01→08:45)
[2019-11-07] MEDS ORDERED: XYLOCAINE-MPF 2% ONE (07:02)
[2019-11-07 07:50] LABS: HEMATOCRIT 30.6 % (37.0-47.0); HEMOGLOBIN 10.2 g/dL (12.0-16.0); MCH 31.6 PG (27-31); MCHC 33.3 g/dL (33-37); MCV 94.7 FL (81-99); MPV 10.3 FL (7.4-10.4); RBC 3.23 XMIL (4.2-5.4); RDW 12.4 % (11.5-14.5); WBC 4.13 X1000 (4.8-10.8)
[2019-11-07 08:16] LABS: AGAP 9; BUN 4 mg/dL (8-22); CALCIUM 8.8 mg/dL (8.8-10.2); CHLORIDE 105 mmol/L (98-107); COSMO 279; CREATININE 0.4 mg/dL (0.5-0.9); ESTIMATED GFR > 60; GLUCOSE 81 mg/dL (70-104); POTASSIUM 3.6 mmol/L (3.5-5.1); SODIUM 142 mmol/L (136-145); TCO2 28 mmol/L (25-35)
--- NOTE | 2019-11-07 09:26 | ENDOSCOPY OPERATIVE NOTE ---
[facility] ENDOSCOPY OPERATIVE NOTE , EGD PROCEDURE REPORT EXAM DATE: 11/07/2019 PATIENT NAME: Joelle Dillard MR#: [id number] BIRTHDATE: 1985 ATTENDING: Jacob Britton MD STATUS: inpatient MAINTENANCE SHOP TECHNICIAN: Dedra De La O and Iris Marques INDICATIONS: The patient is a 34 yr old female here for an EGD due to Epigastric pain, Anemia, H/o g astric Bypass in . PROCEDURE PERFORMED: EGD, diagnostic MEDICATIONS: Per Anesthesia ESTIMATED BLOOD LOSS: None CONSENT: The patient understands the risks and benefits of the procedure and understands that these r isks include, but are not limited to: sedation, allergic reaction, infection, perforation and/or bleeding. Alternative means of evaluation and treatment include, among others: physical exam, x-rays, and/or surgical intervention. The patient elects to proceed with this endoscopic procedure. DESCRIPTION OF PROCEDURE: During pre-op preparation period all mechanical and medical equipment was c hecked for proper function. Hand hygiene and appropriate measures for infection prevention was taken. After the risks, benefits and alternatives of the procedure were thoroughly explained, Informed consent was verified, confirmed and timeout was successfully executed by the treatment team. The patient was anesthetized with topical anesthesia and the [id number]-[id number] ([id number]) endoscope was introduced through the mouth and advanced to the proximal jejunum. Retroflex ion of the stomach was not performed. The gastroscope was then slowly withdrawn and removed. The patient's toleration of the procedure was good. ESOPHAGUS: Z line was noted at 40 cms. Reflux esophagitis was found in the distal esophagus. Esoph agitis was LA Class A: One or more mucosal breaks < 5 mm in maximal length. STOMACH: Gastric bypass anatomy as noted. Gastric pouch measured 5 cms approximately. 7-9 mm ulcer was noted at Anastomosis with no active bleeding or vissible vessel. Normal Efferent loop of small intestine upto 55 cms from the incisors. ADVERSE EVENTS: There were no complications. IMPRESSIONS: 1. Z line was noted at 40 cms 2. Reflux esophagitis in the distal esophagus 3. Gastric bypass anatomy as noted. Gastric pouch measured 5 cms approximately. 7-9 mm ulcer was n oted at Anastomosis with no active bleeding or vissible vessel. Normal Efferent loop of small intestine upto 55 cms from the incisors RECOMMENDATIONS: 1. Start Pantoprazole 40 mg every day for 90 days Start Carafate 1g every 6 hours for 6 weeks Avoid NSAIDs Smal frequent meals 4-5 times per day. Start MVI QD 2. Begin an anti-reflux lifestyle: avoid acidic foods and drinks (like coffee and soda), do not lie down three hours after eating, elevate the head of your bed 6 to 9 inches, stop smokiing and reduce weight if needed. 3. Begin an anti-reflux lifestyle: avoid acidic foods and drinks (like coffee and soda), do not lie down three hours after eating, elevate the head of your bed 6 to 9 inches, stop smokiing and reduce weight if needed. REPEAT EXAM: Return in 3 months for EGD. Jacob Britton MD eSigned: Jacob Britton MD 11/07/2019 9:25 AM CC: CPT CODES: 43430 Upper gastrointestinal endoscopy including esophagus, stomach, and either the du odenum and/or jejunum as appropriate; diagnostic, with or without collection of specimen(s) by brushing or washing (separate procedure) ICD CODES: 530.11 Reflux esophagitis The ICD and CPT codes recommended by this software are interpretations from the data that the [facility] staff has captured with the software. The verification of the translation of this report to the ICD and CPT co tyron and modifiers is the sole responsibility of the health care institution and practicing physician where this report was generated. [employer] will not be held responsible for the validity of the ICD and CPT codes i ncluded on this report. [employer] assumes no liability for data contained or not contained herein. CPT is a registered tra demark of the [employer]. PATIENT NAME: Joelle Dillard MR#: [id number]
--- NOTE | 2019-11-07 09:30 | ENDOSCOPY OPERATIVE NOTE ---
[facility] ENDOSCOPY OPERATIVE NOTE , COLONOSCOPY PROCEDURE REPORT EXAM DATE: 11/07/2019 PATIENT NAME: Joelle Dillard MR #: [id number] BIRTHDATE: 1985 ENDOSCOPIST: Jacob Britton MD STATUS: inpatient PRODUCT SAFETY PROFESSIONAL: Dedra De La O and Iris Marques INDICATIONS: The patient is a 34 yr old female here for a colonoscopy due to Rectal bleeding, Anemia , Abdominal pain. PROCEDURE PERFORMED: Colonoscopy, diagnostic MEDICATIONS: Per Anesthesia PREP TYPE: GoLytely
[2019-11-07] MEDS ORDERED: PROTONIX IV SCH (10:15)
[2019-11-07] MEDS ORDERED: PROTONIX PO SCH (10:25)
[2019-11-07] MEDS ORDERED: SODIUM CHLORIDE 0.9% INJ SCH (10:30)
[2019-11-07] MEDS ORDERED: ANUSOL-HC CREAM PR SCH ×2 (10:30→21:00)
[2019-11-07] MEDS ORDERED: CARAFATE PO SCH (11:00)
[2019-11-07 11:52] VITALS: BP 108/66
[2019-11-07] MEDS ORDERED: PERIDEX MT SCH (21:00)
[2019-11-07] MEDS ORDERED: METAMUCIL POWDER PACKET PO SCH (21:00)
--- NOTE | 2019-11-07 21:39 | DISCHARGE SUMMARY ---
ADMISSION DATE: 11/04/2019 DISCHARGE DATE: 11/07/2019 CONSULTS: Kobi Medina MD, Gastroenterology DISCHARGE DIAGNOSES: 1. Gastrointestinal bleed. 2. Peptic ulcer disease. 3. Hemorrhoids. 4. Acute blood-loss anemia. 5. Gastroesophageal reflux disease. 6. Hyponatremia. 7. History of gastric bypass. HOSPITAL COURSE: The patient presented with complaints of dark stools concerning for GI bleed. Her initial hemoglobin was close normal at 12.3, however, it subsequently did drop down to 10.3. She never got low enough to require transfusion. GI was involved and did colonoscopy and EGD. Colonoscopy showed external and internal hemorrhoids and small anal fissure. EGD showed esophagitis, known gastric bypass and 79 mm ulcer at the anastomosis with no active bleeding at that time. The patient's blood counts stabilized at that point. It was felt she was stable to go home on continued PPI. Follow up in 3 to 4 weeks with GI to and repeat EGD in 3 months. The patient had some modest hyponatremia that resolved with IV fluids. PHYSICAL EXAMINATION: Vital Signs: Temperature 98 degrees, pulse 62, respirations 16, blood pressure 108/66, O2 saturation 100% on room air next. DISCHARGE DIET: Regular. DISCHARGE MEDICATIONS: 1. Propranolol 10 mg p.o. daily. 2. Wellbutrin 150 mg p.o. daily. 3. Xanax as previously prescribed. 4. Hydrocortisone 2.5% cream b.i.d. to affected area. 5. Omeprazole 40 mg p.o. b.i.d. 6. Phenergan as previously prescribed. 7. Zofran 4 mg p.o. every 6 hours as needed. FOLLOWUP AND PLAN: The patient discharging home on b.i.d. PPI therapy for gastric ulcer/peptic ulcer disease. The patient to follow up with PCP and GI. Patient will need to repeat EGD in 3 months or if bleeding reoccurs. TIME SPENT: Greater than 30 minutes spent arranging discharge and counseling patient.
== END 2019-11-07 15:39 | disposition home or self-care (01) | DRG 394 ==
LOC: P.ED 17:25 → 4N 21:42 → SUATTDRO 21:42
PROVIDERS: ATTEND Internal Medicine